=== PATIENT | male | born 1960 | race Caucasian/White ===

== ENCOUNTER 2018-06-25 10:25 | Day surgery (SDC) | payer BC, OTHER ==
[2018-06-25] MEDS: NS 1,000 ML IV (10:30)
[2018-06-25] MEDS ORDERED: LIDOCAINE 2% INJ 100 MG/5 ML SDV (FOR ANES.) As Ordered (10:42)
[2018-06-25] MEDS ORDERED: PROPOFOL 200 MG/20 ML VIAL As Ordered (10:42)
== END 2018-06-25 12:11 | disposition home or self-care (01) ==
LOC: M OPP 10:25
DX: Z12.11 Encounter for screening for malignant neoplasm of colon (principal); Z87.39 Personal history of other diseases of the musculoskeletal system and connective tissue
CPT/HCPCS: G0121

== ENCOUNTER 2018-09-28 13:00 | Outpatient (RCR) | payer BC, OTHER | END 2018-10-01 | LOC: M PT 13:00 | PROVIDERS: ATTEND Physician Assistant | DX: M51.36 Other intervertebral disc degeneration, lumbar region (principal) ==

== ENCOUNTER 2018-10-05 14:30 | Outpatient (RCR) | payer BC, OTHER | END 2018-10-29 | LOC: M PT 14:30 | PROVIDERS: ATTEND Physician Assistant | DX: M48.061 Spinal stenosis, lumbar region without neurogenic claudication (principal); M54.2 Cervicalgia ==

== ENCOUNTER → 2020-04-24 | Outpatient (REF) | payer OTHER, BC | LOC: M LAB REF 08:04 | PROVIDERS: ATTEND Family Medicine | DX: M10.9 Gout, unspecified (principal) ==

== ENCOUNTER → 2021-05-25 | Outpatient (REF) | payer OTHER, BC | LOC: M LAB REF 11:01 | PROVIDERS: ATTEND Family Medicine | DX: M10.9 Gout, unspecified (principal) ==

== ENCOUNTER → 2022-04-24 | Outpatient (REF) | payer OTHER, BC | LOC: M LAB REF 12:06 | PROVIDERS: ATTEND Family Medicine | DX: M10.9 Gout, unspecified (principal) ==

== ENCOUNTER → 2022-08-19 | Outpatient (REF) | payer OTHER | LOC: M SFHCDERM 17:13 | PROVIDERS: ATTEND Physician Assistant | DX: D36.10 Benign neoplasm of peripheral nerves and autonomic nervous system, unspecified (principal) ==

== ENCOUNTER → 2023-09-17 | Outpatient (REF) | payer OTHER, BC | LOC: M LABDRWAD 12:35 | PROVIDERS: ATTEND Family Medicine | DX: M10.9 Gout, unspecified (principal) ==

== ENCOUNTER → 2023-09-23 | Outpatient (REF) | payer OTHER, BC | LOC: M LAB REF 17:48 | PROVIDERS: ATTEND Family Medicine | DX: M10.9 Gout, unspecified (principal) ==

== ENCOUNTER → 2024-09-14 | Outpatient (REF) | payer OTHER, BC | LOC: M LAB REF 12:11 | PROVIDERS: ATTEND Family Medicine | DX: M10.9 Gout, unspecified (principal) ==

== ENCOUNTER → 2025-04-07 | Outpatient (REF) | payer OTHER, BC | LOC: M LAB REF 11:59 | PROVIDERS: ATTEND Family Medicine | DX: M10.9 Gout, unspecified (principal) ==